=== PATIENT | female | born 1955 | race Caucasian/White ===

== ENCOUNTER → 2020-09-07 | Outpatient (CLI) | payer MEDICARE, OTHER ==
[~2020-09-07] MED LIST: CARTIA XT120 MG PO; CELECOXIB200 MG PO; CRESTOR5 MG PO; DILTIAZEM ER360 M1 PO; ELIQUIS5 MG PO; FISH OIL 1,0001 EAC1 PO; HYDRALAZINE HCL25 MG PO; HYDROCHLOROTHIA25 MG PO; LOSARTAN POTAS100 MG PO; LOSARTAN POTASS50 MG PO; MECLIZINE HCL25 MG PO; STOOL SOFT-STI1 EACH PO; STOOL SOFTENER100 M1 PO; VIT D PO; VIT D3 PO; VIT E PO
== END ==
LOC: CATH 07:05 → EDSTATUS 07:30 → CATH 07:30
DX: I08.3 Combined rheumatic disorders of mitral, aortic and tricuspid valves (principal); I25.10 Atherosclerotic heart disease of native coronary artery without angina pectoris; I48.0 Paroxysmal atrial fibrillation; I87.323 Chronic venous hypertension (idiopathic) with inflammation of bilateral lower extremity; I27.20 Pulmonary hypertension, unspecified; I10 Essential (primary) hypertension; E78.5 Hyperlipidemia, unspecified; Z79.899 Other long term (current) drug therapy; Z82.49 Family history of ischemic heart disease and other diseases of the circulatory system
CPT/HCPCS: 93312; 93320; J0360; J1200; J1742; J2250; J3010; J7120

== ENCOUNTER 2021-08-25 11:00 | Emergency (ER) | payer MEDICARE ==
[2021-08-25 12:12] LABS: RED BLOOD COUNT 4.79 M/UL (4.00-5.10); WHITE BLOOD COUNT 3.9 K/UL (4.5-11.0)
[2021-08-25 12:41] LABS: BUN/CREATININE RATIO 30 (0-10)
[2021-08-28] MEDS ORDERED: CRESTOR5 MG PO (07:47)
== END 2021-08-25 15:30 | disposition home or self-care (01) ==
LOC: ER1 11:00
PROVIDERS: Emergency Medicine
DX: I48.0 Paroxysmal atrial fibrillation (principal); Z79.01 Long term (current) use of anticoagulants
CPT/HCPCS: 71045; 80053; 82550; 82553; 84484; 85025; 92960; 93005; 99152; 99153; 99285; J2405

== ENCOUNTER 2021-08-28 08:58 | Inpatient (IN) | payer MEDICARE ==
[~2021-08-28] VITALS: Ht 160 cm; Wt 129.3 kg
[2021-08-28 10:19] LABS: HEMOGLOBIN 14.6 gm/dl (12.3-15.3); RED BLOOD COUNT 4.84 M/UL (4.00-5.10); WHITE BLOOD COUNT 3.8 K/UL (4.5-11.0)
[2021-08-28] MEDS ORDERED: ALDACTONE 25MG25 MG PO (13:36)
[2021-08-28] MEDS ORDERED: FARXIGA10 MG PO (13:36)
[2021-08-28] MEDS ORDERED: ENTRESTO 97 MG1 EACH PO (13:38)
[2021-08-28] MEDS ORDERED: FUROSEMIDE40 MG PO (13:40)
[2021-08-28] MEDS ORDERED: LASIX40 MG PO (13:42)
[2021-08-28] MEDS ORDERED: COREG 25MG TAB25 MG PO (13:46)
[2021-08-29 03:54] LABS: BUN/CREATININE RATIO 28 (0-10)
[2021-08-29 04:59] LABS: HEMOGLOBIN 13.9 gm/dl (12.3-15.3); RED BLOOD COUNT 4.66 M/UL (4.00-5.10); WHITE BLOOD COUNT 4.7 K/UL (4.5-11.0)
[2021-08-29] MEDS ORDERED: MULTAQ 400 MG400 MG PO (14:56)
[2021-08-29] MEDS ORDERED: CARVEDILOL3.125 MG PO (14:56)
== END 2021-08-29 17:06 | disposition home or self-care (01) | DRG 309 ==
LOC: ER1 08:58 → PROG CARE 12:47 → CDU 12:47 → PROG CARE 20:22
PROVIDERS: Emergency Medicine; Physician Assistant; ADMIT Internal Medicine Infectious Disease
PROC: B24BZZZ Ultrasonography of Heart with Aorta (ICD-10-PCS; principal; 2021-08-29)
PROC: 5A2204Z Restoration of Cardiac Rhythm, Single (ICD-10-PCS; 2021-08-29)
DX: I48.0 Paroxysmal atrial fibrillation (principal); I50.32 Chronic diastolic (congestive) heart failure; Z68.43 Body mass index [BMI] 50.0-59.9, adult; Z20.822 Contact with and (suspected) exposure to COVID-19; I11.0 Hypertensive heart disease with heart failure; E11.9 Type 2 diabetes mellitus without complications; I27.20 Pulmonary hypertension, unspecified; I25.10 Atherosclerotic heart disease of native coronary artery without angina pectoris; I95.9 Hypotension, unspecified; E87.6 Hypokalemia; E78.5 Hyperlipidemia, unspecified; E66.01 Morbid (severe) obesity due to excess calories; I35.0 Nonrheumatic aortic (valve) stenosis; Z79.01 Long term (current) use of anticoagulants; Z98.890 Other specified postprocedural states; Z82.49 Family history of ischemic heart disease and other diseases of the circulatory system; Z79.899 Other long term (current) drug therapy; Z79.82 Long term (current) use of aspirin; Z79.4 Long term (current) use of insulin
CPT/HCPCS: ECHO; 36415; 71045; 80048; 80053; 82550; 82553; 82962; 83036; 83735; 83880; 84439; 84443; 84484; 85025; 85610; 85730; 93005; 93306; 96374; 99285; J1200; J2250; J2270; U0002

== ENCOUNTER 2021-09-23 14:41 | Observation (INO) | payer MEDICARE ==
[~2021-09-23] VITALS: Ht 160 cm; Wt 118.8 kg
[~2021-09-23 14:41] MED LIST changes: +ALDACTONE 25MG25 MG PO; +CARVEDILOL3.125 MG PO; +COREG 25MG TAB25 MG PO; +ENTRESTO 97 MG1 EACH PO; +FARXIGA10 MG PO; +FUROSEMIDE40 MG PO; +LASIX40 MG PO; +MULTAQ 400 MG400 MG PO; -VIT D3 PO; -VIT E PO
[2021-09-23 15:57] LABS: HEMOGLOBIN 15.1 gm/dl (12.3-15.3); RED BLOOD COUNT 5.02 M/UL (4.00-5.10); WHITE BLOOD COUNT 5.5 K/UL (4.5-11.0)
[2021-09-24 01:41] LABS: HEMOGLOBIN 14.2 gm/dl (12.3-15.3); RED BLOOD COUNT 4.74 M/UL (4.00-5.10)
[2021-09-24] MEDS ORDERED: CRESTOR20 MG PO (07:47)
[2021-09-24] MEDS ORDERED: VITAMIN D325 MCG PO (07:50)
[2021-09-24] MEDS ORDERED: VITAMIN E200 UNI1 PO (07:51)
[2021-09-24] MEDS ORDERED: B-121000 MCG PO (08:56)
[2021-09-24] MEDS ORDERED: ASPIRIN EC81 MG PO (09:07)
[2021-09-24] MEDS ORDERED: COREG3.125 MG PO (12:36)
[2021-09-24] MEDS ORDERED: TYLENOL PM EX-1 EACH PO (19:03)
== END 2021-09-24 13:13 | disposition home health service (06) ==
LOC: ER1 14:41 → M/S 17:14 → CDU 17:14 → M/S 18:29
PROVIDERS: Nurse Practitioner; ADMIT Internal Medicine
DX: R07.89 Other chest pain (principal); Z20.822 Contact with and (suspected) exposure to COVID-19; E87.6 Hypokalemia; I11.0 Hypertensive heart disease with heart failure; I50.9 Heart failure, unspecified; I48.0 Paroxysmal atrial fibrillation; I08.3 Combined rheumatic disorders of mitral, aortic and tricuspid valves; E78.5 Hyperlipidemia, unspecified; I27.20 Pulmonary hypertension, unspecified; R00.1 Bradycardia, unspecified; R94.31 Abnormal electrocardiogram [ECG] [EKG]; E11.9 Type 2 diabetes mellitus without complications; Z79.01 Long term (current) use of anticoagulants; Z79.899 Other long term (current) drug therapy; Z88.8 Allergy status to other drugs, medicaments and biological substances
CPT/HCPCS: 0240U; 36415; 71045; 80048; 80053; 81001; 82550; 82553; 83735; 83880; 84484; 85025; 85027; 85610; 85730; 93005; 99285; G0378

== ENCOUNTER 2021-10-13 10:48 | Observation (INO) | payer MEDICARE ==
[~2021-10-13] VITALS: Ht 160 cm; Wt 123.8 kg
[~2021-10-13 10:48] MED LIST changes: +ASPIRIN EC81 MG PO; +B-121000 MCG PO; +COREG3.125 MG PO; +CRESTOR20 MG PO; +TYLENOL PM EX-1 EACH PO; +VITAMIN D325 MCG PO; +VITAMIN E200 UNI1 PO
[2021-10-13 11:31] LABS: HEMOGLOBIN 15.1 gm/dl (12.3-15.3); RED BLOOD COUNT 5.04 M/UL (4.00-5.10); WHITE BLOOD COUNT 4.6 K/UL (4.5-11.0)
[2021-10-13 11:52] LABS: BUN/CREATININE RATIO 33 (0-10)
[2021-10-13] MEDS ORDERED: CARVEDILOL6.25 MG PO (16:39)
[2021-10-13] MEDS ORDERED: LASIX20 MG PO ×2 (16:43→16:44)
[2021-10-14 01:38] LABS: HEMOGLOBIN 14.6 gm/dl (12.3-15.3); RED BLOOD COUNT 4.96 M/UL (4.00-5.10); WHITE BLOOD COUNT 4.7 K/UL (4.5-11.0)
[2021-10-15 10:25] LABS: HEMOGLOBIN 14.9 gm/dl (12.3-15.3); RED BLOOD COUNT 5.01 M/UL (4.00-5.10); WHITE BLOOD COUNT 4.2 K/UL (4.5-11.0)
[2021-10-15] MEDS ORDERED: FUROSEMIDE20 MG PO (19:28)
[2021-10-15] MEDS ORDERED: ASPIRIN EC81 MG PO (19:28)
[2021-10-15] MEDS ORDERED: CARVEDILOL3.125 MG PO (19:28)
== END 2021-10-15 19:55 | disposition home or self-care (01) ==
LOC: ER1 10:48 → CDU 15:39 → PROG CARE 15:39
PROVIDERS: Physician Assistant; ADMIT Internal Medicine
DX: I48.0 Paroxysmal atrial fibrillation (principal); I48.92 Unspecified atrial flutter; I08.3 Combined rheumatic disorders of mitral, aortic and tricuspid valves; I27.20 Pulmonary hypertension, unspecified; I11.0 Hypertensive heart disease with heart failure; I50.32 Chronic diastolic (congestive) heart failure; E78.5 Hyperlipidemia, unspecified; E11.9 Type 2 diabetes mellitus without complications; Z94.84 Stem cells transplant status; Z79.01 Long term (current) use of anticoagulants; Z79.1 Long term (current) use of non-steroidal anti-inflammatories (NSAID); Z79.899 Other long term (current) drug therapy; Z88.8 Allergy status to other drugs, medicaments and biological substances; Z86.79 Personal history of other diseases of the circulatory system
CPT/HCPCS: 36415; 71045; 80053; 82550; 82553; 83735; 84484; 85025; 93005; 96374; 96375; 96376; 99285; G0378; J2405

== ENCOUNTER 2021-12-11 08:08 | Emergency (ER) | payer MEDICARE ==
[~2021-12-11 08:08] MED LIST changes: +CARVEDILOL6.25 MG PO; +FUROSEMIDE20 MG PO; +LASIX20 MG PO
[2021-12-11 08:42] LABS: RED BLOOD COUNT 4.99 M/UL (4.00-5.10); WHITE BLOOD COUNT 4.2 K/UL (4.5-11.0)
== END 2021-12-11 10:24 | disposition home or self-care (01) ==
LOC: ER1 08:08
PROVIDERS: Emergency Medicine
DX: I48.91 Unspecified atrial fibrillation (principal); I44.0 Atrioventricular block, first degree; I44.4 Left anterior fascicular block
CPT/HCPCS: 71045; 80048; 84484; 85025; 93005; 99285; J2704; J7040

== ENCOUNTER → 2022-01-24 | Outpatient (CLI) | payer MEDICARE | LOC: LAB 10:49 | DX: U07.1 COVID-19 (principal) | CPT/HCPCS: U0002 ==